=== PATIENT | female | born 1955 | race Hispanic/Latino ===

== ENCOUNTER 2017-01-13 22:49 | Inpatient (IN) | payer MEDICARE, OTHER ==
--- NOTE | 2017-01-13 23:24 | ED PDOC ---
Arrival/HPI - General Time Seen by Provider: 01/13/17 22:55 Historian: Patient - History of Present Illness Narrative History of Present Illness (Text): 01/13/17 23:23 Shanelle Rodriguez is a 61 year old female, whose past medical history includes whose past medical history includes breast cancer, diabetes, cholecystectomy, lupus, and left-sided nephrolithiasis, who presents to the ED complaining of right flank pain. Patient states she woke up this morning with right flank pain radiating to her abdomen, gradually worsening throughout the day. Patient also reports associated nausea and vomiting. Patient states she took Zofran at home, but was unable to keep it down secondary to vomiting. Patient denies any fever, chills, chest pain, shortness of breath, diarrhea, urinary symptoms, neck pain, headache, dizziness, or any other complaints. Time/Duration: Other (this morning) Symptom Onset: Gradual Symptom Course: Unchanged Activities at Onset: Rest, Light Context: Home Past Medical History - Provider Review Nursing Documentation Reviewed: Yes - Cardiac Hx Cardiac Arrhythmia: Yes (afib/flutter, svt) Hx Hypertension: Yes - Pulmonary Hx Respiratory Disorders: (pulmonary fibrosis) Hx Chronic Obstructive Pulmonary Disease (COPD): Yes Hx Pneumonia: Yes - Neurological Hx Neurological Disorder: (peripheral neuropathy) - HEENT Hx HEENT Disorder: (glasses) - Endocrine/Metabolic Hx Diabetes Mellitus Type 2: Yes Hx Systemic Lupus Erythematosus: Yes - Hematological/Oncological Hx Cancer: Yes (breast, lyph node x1) - Musculoskeletal/Rheumatological Hx Arthritis: Yes (rheumatoid) Hx Falls: No Hx Unsteady Gait: Yes (cane) - Psychiatric Hx Substance Use: No - Surgical History Hx Cholecystectomy: Yes Hx Hysterectomy: Yes - Anesthesia Hx Malignant Hyperthermia: No Family/Social History - Physician Review Nursing Documentation Reviewed: Yes Family/Social History: No Known Family HX Smoking Status: Never Smoked Hx Alcohol Use: No Hx Substance Use: No Hx Substance Use Treatment: No Allergies/Home Meds Allergies/Adverse Reactions: Allergies erythromycin base Allergy (Verified 01/13/17 23:41) RASH gabapentin Allergy (Verified 01/13/17 23:41) RASH prochlorperazine Allergy (Verified 01/13/17 23:41) RASH quinine Allergy (Verified 01/13/17 23:41) RASH Home Medications: Home Meds Medication Instructions Recorded Confirmed Acetaminophen/Oxycodone Hydr 15 tab PO PRN PRN 05/30/12 01/14/17 [Percocet 325 mg-5 mg] Digoxin 0.25 mg PO DAILY 05/30/12 01/14/17 Flecainide Acetate 200 mg PO Q12 05/30/12 01/14/17 Fluticasone Propionate [Flovent 20 mg IH Q12 05/30/12 01/14/17 Diskus] Furosemide [Lasix] 40 mg PO DAILY 05/30/12 01/14/17 Levalbuterol Tartrate [Xopenex Hfa] 45 mcg IH Q6 05/30/12 01/14/17 Oxycodone Hydrochloride [Oxycontin] 20 mg PO Q12 PRN 05/30/12 01/14/17 Potassium Chloride [K-Dur 20] 40 meq PO DAILY 05/30/12 01/14/17 Prednisone 5 mg PO DAILY 05/30/12 01/14/17 Metoprolol Succinate [Toprol XL] 50 mg PO DAILY 10/22/13 01/14/17 Ondansetron ODT [Zofran ODT] 4 mg PO PRN PRN 10/22/13 01/14/17 DULoxetine [Cymbalta] 40 mg PO DAILY 01/14/17 01/14/17 Dronabinol [Marinol] 5 mg PO DAILY 01/14/17 01/14/17 Fluticasone Propionate [Flovent 1 puff PO BID 01/14/17 01/14/17 Hfa] Glipizide/Metformin HCl 500 tab PO BID 01/14/17 01/14/17 [Glipizide-Metformin 2.5-250 mg] Morphine [Morphine Extended 80 mg PO DAILY 01/14/17 01/14/17 Release Tab] Palbociclib [Ibrance] 125 mg PO DAILY 01/14/17 01/14/17 Review of Systems - Physician Review All systems were reviewed & negative as marked: Yes - Review of Systems Constitutional: Normal. absent: Fevers Eyes: Normal ENT: Normal Respiratory: Normal. absent: SOB, Cough Cardiovascular: Normal. absent: Chest Pain Gastrointestinal: Abdominal Pain, Nausea, Vomiting Genitourinary Female: Normal. absent: Dysuria, Frequency, Hematuria, Urine Output Changes Musculoskeletal: Back Pain (+right flank pain). absent: Neck Pain Skin: Normal. absent: Rash Neurological: Normal. absent: Headache, Dizziness Endocrine: Normal Hemo/Lymphatic: Normal Psychiatric: Normal Physical Exam Vital Signs Reviewed: Yes Vital Signs Temp Pulse Resp BP Pulse Ox 01/14/17 03:25 977.6 F H 65 18 156/64 H 95 01/14/17 01:00 69 16 151/69 H 95 01/13/17 22:50 97.6 F 68 16 157/73 H 98 Temperature: Afebrile Blood Pressure: Normal Pulse: Regular Respiratory Rate: Normal Appearance: Positive for: Well-Appearing, Non-Toxic, Comfortable Pain Distress: None Mental Status: Positive for: Alert and Oriented X 3 - Systems Exam Head: Present: Atraumatic, Normocephalic Pupils: Present: PERRL Extroacular Muscles: Present: EOMI Conjunctiva: Present: Normal Mouth: Present: Moist Mucous Membranes Neck: Present: Normal Range of Motion Respiratory/Chest: Present: Clear to Auscultation, Good Air Exchange. No: Respiratory Distress, Accessory Muscle Use Cardiovascular: Present: Regular Rate and Rhythm, Normal S1, S2. No: Murmurs Abdomen: Present: Normal Bowel Sounds. No: Tenderness, Distention, Peritoneal Signs Back: Present: Normal Inspection Upper Extremity: Present: Normal Inspection. No: Cyanosis, Edema Lower Extremity: Present: Normal Inspection. No: Edema Neurological: Present: GCS=15, CN II-XII Intact, Speech Normal Skin: Present: Warm, Dry, Normal Color. No: Rashes Psychiatric: Present: Alert, Oriented x 3, Normal Insight, Normal Concentration Medical Decision Making ED Course and Treatment: 01/13/17 23:23 Impression: 61 year old female complaining of right flank pain radiating to abdomen since this morning. Plan: -- CT Abdomen and Pelvis with PO and IV contrast -- Labs -- Urinalysis -- IV fluids -- Zofran -- Dilaudid -- Reassess and disposition Prior Visits: Notes and results from previous visits were reviewed. Progress Notes: Reviewed EKG, NSR at 67 bpm. LAD. RBBB. LVH. Non-specific ST/T wave changes. 01/14/17 02:25 Reviewed labs, elevated LFTs. Reviewed radiology, CT Abdomen and Pelvis shows: - Small amount of perihepatic free fluid. This is of uncertain etiology. - Biliary ductal dilatation, which may be related to the post cholecystectomy state. Recommend correlation with LFTs as clinically indicated. - Otherwise, no evidence of significant acute process on this unenhanced exam. Appendix is not seen, however. - Enlarged liver and spleen, with possible cirrhotic change of the liver. - See above for remaining findings. 01/14/17 03:[address] Spaulding, who is aware and agrees with plan. Accepts pt in to her service. - Lab Interpretations Lab Results: 01/15/17 05:50 01/15/17 05:50 Lab Results 01/15/17 05:50: WBC 4.2 L D, RBC 3.50, Hgb 11.5 L, Hct 34.9 L, MCV 99.7, MCH 32.9, MCHC 33.0, RDW 15.3 H, Plt Count 173, MPV 10.0, Gran % 60.3, Lymph % (Auto ) 30.4, [place] % (Auto) 6.9 H, Eos % (Auto) 1.7, Baso % (Auto) 0.7, Gran # 2.54, Lymph # 1.3, [place] # 0.3, Eos # 0.1, Baso # 0.03, Sodium 136, Potassium 3.9, Chloride 98, Carbon Dioxide 30, Anion Gap 12, BUN 12, Creatinine 0.4 L, Est GFR ( Amer) > 60, Est GFR (Non-Af Amer) > 60, Random Glucose 259 H, Calcium 8.7, Total Bilirubin 1.0, AST 118 H, ALT 88 H, Alkaline Phosphatase 122, Total Protein 8.0, Albumin 3.5, Globulin 4.5, Albumin/Globulin Ratio 0.8 L, Alpha Fetoprotein 3.0 01/14/17 00:20: WBC 6.0, RBC 3.76, Hgb 12.5, Hct 37.0, MCV 98.4, MCH 33.2, MCHC 33.8, RDW 15.0 H, Plt Count 192, MPV 10.1, Gran % 76.5 H, Lymph % (Auto) 16.7 L , [place] % (Auto) 5.6, Eos % (Auto) 0.7 L, Baso % (Auto) 0.5, Gran # 4.62, Lymph # 1.0 L, [place] # 0.3, Eos # 0.0, Baso # 0.03, Sodium 134, Potassium 4.2, Chloride 93 L, Carbon Dioxide 29, Anion Gap 16, BUN 19, Creatinine 0.5, Est GFR ( Amer) > 60, Est GFR (Non-Af Amer) > 60, Random Glucose 201 H, Calcium 9.2, Total Bilirubin 1.3, AST 155 H, ALT 101 H, Alkaline Phosphatase 144 H, Total Protein 9.0 H, Albumin 4.1, Globulin 4.9, Albumin/Globulin Ratio 0.8 L 01/14/17 00:01: Hepatitis A IgM Ab Negative, Hep Bs Antigen Negative, Hep B Core IgM Ab Negative, Hepatitis C Antibody Reactive H 01/13/17 23:58: POC Glucose (mg/dL) 204 H 01/13/17 05:30: Urine Color Yellow, Urine Appearance Slight-cloudy, Urine pH 6.0 , Ur Specific [place] >= 1.030, Urine Protein Trace H, Urine Glucose (UA) 100 H , Urine Ketones Negative, Urine Blood Negative, Urine Nitrate Negative, Urine Bilirubin Negative, Urine Urobilinogen 4.0 H, Ur Leukocyte Esterase Trace H, Urine RBC 0 - 2, Urine WBC 1 - 3, Ur Epithelial Cells 0 - 2, Urine Bacteria Many I have reviewed the lab results: Yes - RAD Interpretation Narrative RAD Interpretations (Text): CT Abdomen and Pelvis shows: STOMACH AND BOWEL: Ventral hernia, in the midline anterior abdominal wall, containing a small bowel loop. No evidence of associated bowel obstruction or hernia incarceration. Retained stool noted throughout the colon. No acute abnormality of the colon identified. No evidence of small bowel obstruction. No acute abnormality of the stomach or duodenum identified. APPENDIX: Normal appendix is not seen, however, there are no significant inflammatory changes visualized in the expected location of the appendix to suggest appendicitis. Recommend clinical correlation. PELVIS: BLADDER: No acute abnormality of the bladder identified. REPRODUCTIVE: Uterus is surgically absent. No evidence of large adnexal masses. ABDOMEN and PELVIS: INTRAPERITONEAL SPACE: Small amount of free fluid in the right abdomen. This abuts the right lobe of the liver inferiorly. No evidence of free air. BONES/JOINTS: No acute fractures or other acute bony abnormality noted. SOFT TISSUES: Findings in the gluteal subcutaneous tissues bilaterally which are most likely related to chronic subcutaneous injections. Recommend clinical correlation. Fat containing ventral and umbilical hernias also noted. VASCULATURE: Atherosclerotic calcification. No evidence of abdominal aortic aneurysm. LYMPH NODES: No evidence of diffuse lymphadenopathy. IMPRESSION: - Small amount of perihepatic free fluid. This is of uncertain etiology. - Biliary ductal dilatation, which may be related to the post cholecystectomy state. Recommend correlation with LFTs as clinically indicated. - Otherwise, no evidence of significant acute process on this unenhanced exam. Appendix is not seen, however. - Enlarged liver and spleen, with possible cirrhotic change of the liver. - See above for remaining findings. Radiology Orders: 01/13/17 23:44 ABD & PELVIS W/O PO OR IV CONT [CT] Stat 01/14/17 06:58 ABDOMEN COMPLETE [US] Urgent 01/15/17 13:30 MRCP AND ABDOMEN W/O CONTRAST [MRI] Routine Grounds Maintenance Worker: Radiologist - Medication Orders Current Medication Orders: Discontinued Medications Alprazolam (Xanax) 0.5 mg PO ONCE ONE PRN Reason: Protocol Stop: 01/15/17 13:01 Last Admin: 01/15/17 12:34 Dose: 0.5 MG Behavioural Document 01/15/17 12:34 MANJINDER (Rec: 01/15/17 12:34 [place]ER [place] [id number]) Maintenance Maintenance Dose No Nonmedicinal Nonmedicinal Interventions Redirect Therapeutic Communication Give food/fluids Behavior Behavior for Medication: Anxiety Amlodipine Besylate (Norvasc) 5 mg PO DAILY [facility] Last Admin: 01/16/17 10:13 Dose: 5 MG MAR Pulse and Blood Pressure Document 01/16/17 10:13 DLL (Rec: 01/16/17 10:14 DLL [id number]) Pulse Pulse Rate (60-90) 67 Blood Pressure Blood Pressure (100/60-150/90) 191/87 Budesonide (Pulmicort Respules) 0.5 mg IH [id number] [facility] Last Admin: 01/16/17 09:01 Dose: 0.5 MG Digoxin (Lanoxin) 0.25 mg PO 1400 [facility] Last Admin: 01/15/17 17:55 Dose: 0.25 MG MAR Apical Pulse Rate Document 01/15/17 17:55 MANJINDER (Rec: 01/15/17 17:56 [place] [id number]) Apical Pulse Rate Apical Pulse Rate (60-90 beats/min) 62 Duloxetine HCl (Cymbalta) 40 mg PO DAILY [facility] Last Admin: 01/14/17 20:17 Dose: Duloxetine HCl (Cymbalta) 40 mg PO HS JOAQUIN Stop: 01/28/17 10:01 Last Admin: 01/15/17 21:48 Dose: 40 MG Flecainide Acetate (Tambocor) 200 mg PO Q12 [facility] Last Admin: 01/16/17 10:14 Dose: 200 MG MAR Pulse and Blood Pressure Document 01/16/17 10:14 DLL (Rec: 01/16/17 10:15 DLL [id number]) Pulse Pulse Rate (60-90) 67 Blood Pressure Blood Pressure (100/60-150/90) 191/87 Furosemide (Lasix) 40 mg PO DAILY [facility] Last Admin: 01/16/17 10:14 Dose: 40 MG MAR Blood Pressure Document 01/16/17 10:14 DLL (Rec: 01/16/17 10:14 DLL [id number]) Blood Pressure Blood Pressure (100/60-150/90) 191/87 Glipizide (Glucotrol) 2.5 mg PO BID [facility] Last Admin: 01/16/17 10:13 Dose: 2.5 MG Hydromorphone HCl (Dilaudid) 2 mg IVP STAT STA Stop: 01/13/17 23:45 Last Admin: 01/14/17 00:20 Dose: 2 MG IVP Administration Document 01/14/17 00:20 OCS (Rec: 01/14/17 00:21 OCS [id number]) Charges for Administration # of IVP Administrations 1 Hydromorphone HCl (Dilaudid) 2 mg IVP STAT STA Stop: 01/14/17 02:23 Last Admin: 01/14/17 02:38 Dose: 2 MG IVP Administration Document 01/14/17 02:38 OCS (Rec: 01/14/17 02:38 OCS [id number]) Charges for Administration # of IVP Administrations 1 Hydromorphone HCl (Dilaudid) 2 mg IVP Q4H PRN PRN Reason: Pain, moderate (4-7) Last Admin: 01/16/17 05:15 Dose: 2 MG MAR Pain Assessment Document 01/16/17 05:15 PCO (Rec: 01/16/17 05:16 [place] [id number]) Pain Reassessment Is this a pain reassessment? No Sleep Is patient sleeping during reassessment? No Presence of Pain Presence of Pain Yes Pain Scale Used Pain Scale Used Numeric Location Left, Right or Bilateral Left Pain Location Body Site Breast Description Description Intermittent Intensity of Pain at present 8 Acceptable Level of Pain 0/10 Variations/Patterns sharp Pain Behavior Moaning Facial Grimacing Aggravating Factors Exercise/Activity Alleviating Factors/Management Medication Techniques Relaxation Techniques Inactivity Alleviating Factors Medication Effects of Pain pain woke me up IVP Administration Document 01/16/17 05:15 PC (Rec: 01/16/17 05:16 [place] [id number]) Charges for Administration # of IVP Administrations 1 Re-Assess: MAR Pain Assessment Document 01/16/17 06:15 PCO (Rec: 01/16/17 07:00 [place] [id number]) Pain Reassessment Is this a pain reassessment? Yes Sleep Is patient sleeping during reassessment? No Presence of Pain Presence of Pain No Sodium Chloride (Sodium Chloride 0.9%) 1,000 mls @ 100 mls/hr IV .Q10H STA Stop: 01/14/17 09:42 Last Admin: 01/14/17 00:20 Dose: 100 MLS/HR eMAR Start Stop Document 01/14/17 00:20 OCS (Rec: 01/14/17 00:20 OCS [id number]) Intravenous Solution Start Date 01/14/17 Start Time 00:20 Sodium Chloride (Sodium Chloride 0.45%) 1,000 mls @ 50 mls/hr IV .Q20H [facility] Last Admin: 01/16/17 08:22 Dose: 50 MLS/HR eMAR Start Stop Document 01/16/17 08:22 DLL (Rec: 01/16/17 08:22 DLL [id number]) Intravenous Solution Start Date 01/16/17 Start Time 08:22 End Date 01/16/17 Insulin Human Lispro (Humalog Low) 0 units SC ACHS [facility] PRN Reason: Protocol Last Admin: 01/16/17 11:34 Dose: 5 UNITS MAR Blood Glucose Document 01/16/17 11:34 DLL (Rec: 01/16/17 11:35 DLL [id number]) Blood Glucose Finger Stick Blood Glucose (70-120) 368 Subcutaneous Administrations Document 01/16/17 11:34 DLL (Rec: 01/16/17 11:35 DLL [id number]) Injection Site MAR Injection Site Right Arm Charges for Administration # of Subcutaneous Administrations 1 Levalbuterol HCl (Xopenex) 0.63 mg IH [id number] PRN PRN Reason: Shortness of Breath Last Admin: 01/15/17 19:57 Dose: 0.63 MG Metformin HCl (Glucophage) 500 mg PO BID [facility] Last Admin: 01/16/17 10:13 Dose: 500 MG Metoprolol Succinate (Toprol Xl) 50 mg PO DAILY [facility] Last Admin: 01/16/17 10:14 Dose: 50 MG MAR Pulse and Blood Pressure Document 01/16/17 10:14 DLL (Rec: 01/16/17 10:14 DLL [id number]) Pulse Pulse Rate (60-90) 67 Blood Pressure Blood Pressure (100/60-150/90) 191/87 Mirtazapine (Remeron) 30 mg PO HS [facility] Last Admin: 01/15/17 21:45 Dose: 30 MG Palbociclib [Ibrance ] 125 Mg (Home Med ) 125 mg PO DAILY [facility] Last Admin: 01/15/17 10:47 Dose: Ondansetron HCl (Zofran Inj) 4 mg IVP STAT STA Stop: 01/13/17 23:44 Last Admin: 01/14/17 00:20 Dose: 4 MG IVP Administration Document 01/14/17 00:20 OCS (Rec: 01/14/17 00:20 OCS [id number]) Charges for Administration # of IVP Administrations 1 Ondansetron HCl (Zofran Odt) 4 mg PO Q8H PRN PRN Reason: Nausea/Vomiting Last Admin: 01/15/17 11:01 Dose: 4 MG Oxycodone HCl (Oxycontin Extended Release Tab) 20 mg PO Q12 [facility] Last Admin: 01/16/17 10:14 Dose: 20 MG MAR Pain Assessment Document 01/16/17 10:14 DLL (Rec: 01/16/17 10:14 DLL [id number]) Pain Reassessment Is this a pain reassessment? No Sleep Is patient sleeping during reassessment? No Presence of Pain Presence of Pain Yes Pantoprazole Sodium (Protonix Ec Tab) 40 mg PO 0630 [facility] Last Admin: 01/16/17 06:10 Dose: 40 MG Potassium Chloride (K-Dur 20 Meq Er Tab) 20 meq PO DAILY [facility] Last Admin: 01/16/17 10:14 Dose: 20 MEQ Prednisone (Prednisone Tab) 5 mg PO DAILY [facility] Last Admin: 01/16/17 10:13 Dose: 5 MG - Lazaroibe Statement The provider has reviewed the documentation as recorded by the Melanie Dudley Provider Attestation: All medical record entries made by the Melanie were at my direction and personally dictated by me. I have reviewed the chart and agree that the record accurately reflects my personal performance of the history, physical exam, medical decision making, and the department course for this patient. I have also personally directed, reviewed, and agree with the discharge instructions and disposition. Disposition/Present on Arrival - Present on Arrival Any Indicators Present on Arrival: No History of DVT/PE: No History of Uncontrolled Diabetes: No Urinary Catheter: No History Surgical Site Infection Following: None - Disposition Have Diagnosis and Disposition been Completed?: Yes Diagnosis: Flank pain Disposition: HOSPITALIZED Disposition Time: 04:00 Patient Problems: Current Active Problems Problem Status Diagnosed Breast cancer Acute Diabetes mellitus Acute Condition: GOOD
[2017-01-13 23:36] VITALS: BMI 27.3
[2017-01-13] MEDS ORDERED: Sodium Chloride 0.9% 1,000 ML IV STA (23:43)
[2017-01-13] MEDS ORDERED: HYDROmorphone 2 mg/ml ISec IVP STA (23:44)
[2017-01-14 00:24] LABS: ADD MANUAL DIFF? NO
[2017-01-14 00:46] LABS: ALB/GLOB RATIO 0.8 (1.1-1.8); ALKALINE PHOSPHATASE 144 U/L (38-133); ALT/SGPT 101 U/L (7-56); AST/SGOT 155 U/L (15-39); BILIRUBIN,TOTAL 1.3 mg/dL (0.2-1.3); BLOOD UREA NITROGEN 19 mg/dL (7-21); CALCIUM 9.2 mg/dL (8.4-10.5); CARBON DIOXIDE 29 mmol/L (21-33); CHLORIDE 93 mmol/L (98-107); GFR AFRICAN-AMERICAN > 60; GLUCOSE,RANDOM 201 mg/dL (70-110); POTASSIUM 4.2 mmol/L (3.6-5.0); SODIUM 134 mmol/L (132-148)
[2017-01-14 00:50] LABS: BASO # 0.03 K/mm3 (0.0-2.0); BASO % 0.5 % (0.0-3.0); EOS % 0.7 % (1.5-5.0); GRAN # 4.62 (1.4-6.5); GRAN % 76.5 % (50.0-68.0); LYMPH % 16.7 % (22.0-35.0); MEAN CELL VOLUME 98.4 fL (80.0-105.0); MEAN CORPUSCULAR HEMOGLOBIN 33.2 pg (25.0-35.0); MEAN CORPUSCULAR HGB CONC 33.8 g/dl (31.0-37.0); MEAN PLATELET VOLUME 10.1 fl (7.0-11.0); MONO # 0.3 (0.1-0.6); MONO % 5.6 % (1.0-6.0); PLATELET COUNT 192 10^3/uL (120.0-450.0)
[2017-01-14] MEDS ORDERED: HYDROmorphone 2 mg/ml ISec IVP STA (02:22)
--- NOTE | 2017-01-14 02:30 | CT ---
EXAM: CT Abdomen and Pelvis Without Intravenous Contrast. CLINICAL HISTORY: 61 years old, female; Pain; Abdominal pain; Flank; Right; Prior surgery; Surgery date: 6+ months; Surgery type: Hysterectomy, gallbladder removal; Additional info: Rt flank pain TECHNIQUE: Axial computed tomography images of the abdomen and pelvis without intravenous contrast. This CT exam was performed using one or more of the following dose reduction techniques: automated exposure control, adjustment of the mA and/or kV according to patient size, and/or use of iterative reconstruction technique. Coronal and sagittal reformatted images were created and reviewed. EXAM DATE/TIME: 01/13/2017 11:44 PM COMPARISON: No relevant prior studies available. FINDINGS: LOWER THORAX: Heart appears enlarged. ABDOMEN: LIVER: Hepatomegaly, with the liver measuring 23 cm in length. The liver has a mildly lobulated contour, which could be secondary to cirrhotic change. GALLBLADDER AND BILE DUCTS: Cholecystectomy clips. Biliary ductal dilatation, which may be related to the post cholecystectomy state. No radiopaque common bile duct stones are visualized. PANCREAS: No CT evidence of acute pancreatitis. SPLEEN: Splenomegaly, with the spleen measuring 19 cm in length. ADRENALS: No acute abnormality of the adrenal glands identified. KIDNEYS AND URETERS: Tiny, nonobstructing left renal stones. Low density lesions in the kidneys bilaterally, most likely representing cysts. No obstructing stones are seen. No evidence of hydroureteronephrosis. STOMACH AND BOWEL: Ventral hernia, in the midline anterior abdominal wall, containing a small bowel loop. No evidence of associated bowel obstruction or hernia incarceration. Retained stool noted throughout the colon. No acute abnormality of the colon identified. No evidence of small bowel obstruction. No acute abnormality of the stomach or duodenum identified. APPENDIX: Normal appendix is not seen, however, there are no significant inflammatory changes visualized in the expected location of the appendix to suggest appendicitis. Recommend clinical correlation. PELVIS: BLADDER: No acute abnormality of the bladder identified. REPRODUCTIVE: Uterus is surgically absent. No evidence of large adnexal masses. ABDOMEN and PELVIS: INTRAPERITONEAL SPACE: Small amount of free fluid in the right abdomen. This abuts the right lobe of the liver inferiorly. No evidence of free air. BONES/JOINTS: No acute fractures or other acute bony abnormality noted. SOFT TISSUES: Findings in the gluteal subcutaneous tissues bilaterally which are most likely related to chronic subcutaneous injections. Recommend clinical correlation. Fat containing ventral and umbilical hernias also noted. VASCULATURE: Atherosclerotic calcification. No evidence of abdominal aortic aneurysm. LYMPH NODES: No evidence of diffuse lymphadenopathy. IMPRESSION: - Small amount of perihepatic free fluid. This is of uncertain etiology. - Biliary ductal dilatation, which may be related to the post cholecystectomy state. Recommend correlation with LFTs as clinically indicated. - Otherwise, no evidence of significant acute process on this unenhanced exam. Appendix is not seen, however. - Enlarged liver and spleen, with possible cirrhotic change of the liver. - See above for remaining findings.
[2017-01-14] MEDS ORDERED: Sodium Chloride 0.9% 1,000 ML IV STA (03:10)
[2017-01-14 05:35] VITALS: RESP 20
[2017-01-14 05:59] LABS: URINE BILIRUBIN NEGATIVE (NEGATIVE); URINE BLOOD NEGATIVE (NEGATIVE); URINE GLUCOSE (UA) 100 mg/dL (NEGATIVE); URINE KETONE NEGATIVE (NEGATIVE); URINE LEUKOCYTE ESTERASE TRACE Leu/uL (NEGATIVE); URINE PROTEIN TRACE mg/dL (<30 mg/dL)
[2017-01-14 06:00] LABS: URINE APPEARANCE SLIGHT-CLOUDY (CLEAR); URINE COLOR YELLOW (YELLOW)
[2017-01-14] MEDS: HYDROmorphone 2 mg/ml ISec IVP PRN ×4 (06:00→22:19)
[2017-01-14 06:13] LABS: URINE BACTERIA MANY (NEG); URINE EPITHELIAL CELLS 0 - 2 /hpf (0-5); URINE RBC 0 - 2 /hpf (0-2)
[2017-01-14] MEDS: Insulin Lispro (humaLOG) LOW Coverage SC SCH ×4 (08:46→22:30)
[2017-01-14] MEDS: Potassium Chloride 20 mEq ER Tab PO SCH (12:05)
[2017-01-14] MEDS: Metoprolol Succinate 50 mg XL Tab PO SCH (12:06)
--- NOTE | 2017-01-14 13:40 | US ---
HISTORY: abd pain COMPARISON: 10/22/2013. TECHNIQUE: Sonographic evaluation of the abdomen. FINDINGS: LIVER: Measures 22.9 x 12.5 cm. Hepatomegaly. Hepatopedal blood flow. Fatty infiltration manifest ultrasonographically as increased Echogenicity of the liver parenchyma. No mass. No intrahepatic bile duct dilatation. GALLBLADDER: Status post cholecystectomy. No abnormality is seen in the gallbladder fossa. COMMON BILE DUCT: Measures 15.1 mm. No stones. No dilatation. Dilated common bile duct apparent on the prior study as well. PANCREAS: Unremarkable as visualized. No mass. No ductal dilatation. RIGHT KIDNEY: Measures 12.6 x 5.4cm. Normal echogenicity. No calculus, mass, or hydronephrosis.Incidental finding(s): Simple cyst 5.1 x 4.5 cm. Upper pole location. LEFT KIDNEY: Measures 12.9 x 5.4cm. Normal echogenicity. No calculus, mass, or hydronephrosis.Incidental finding(s): Simple cyst 1.8 x 2.3 cm. SPLEEN: Splenomegaly. Orthogonal measurements 6.2 x 19.8. AORTA: No aneurysmal dilatation. IVC: Unremarkable. OTHER FINDINGS: None. IMPRESSION: Splenomegaly. Hepatomegaly/hepatic steatosis. Otherwise no significant/acute findings.
--- NOTE | 2017-01-14 13:43 | HP ---
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 The patient came to Emergency Room because of severe right flank pain radiating to her right mid to lower abdomen. She did notice her urine has fo ul smell and did have some low-grade fever and chills with decreased appetite. She takes Marinol at home for her appetite. Denies any hematuria, no hemoptysis, no hematemesis, decreased appetite and n ausea at times. She has complicated past medical history includin. Chronic atrial fibrillation. 2. Non-insulin dependent diabetes. 3. Status post left thoracotomy for sympathectomy that she got in [employer] when she was havin g severe pain because of Raynaud's phenomenon. 4. Status post thoracic and lumbar sympathectomy 5. History of endometriosis. 6. Chronic anemia. 7. Gastroparesis. 8. Hepatitis C that she with a blood transfusion that she received 20 years ago. 9. Pulmonary fibrosis. 10. Left breast CA with mets to the lymph nodes. 11. Osteoporosis. 12. Mitral regurg. 13. Peripheral neuropathy. PAST SURGICAL HISTORY: Significant for hysterectomy and cholecystectomy. ALLERGIES: SHE IS ALLERGIC TO ERYTHROMYCIN, GABAPENTIN, PROCHLORPERAZINE, QUININE. MEDICATIONS AT HOME: 1. She is on Cymbalta 40 mg daily. 2. Dilaudid 2 mg. 3. Metformin 2.5/250 twice a day. 4. She is on MS Contin 80 mg daily. 5. Ibrance 125 mg daily. 6. Marinol 5 mg daily. 7. Flovent 1 puff twice a day. 9. Prednisone 5 mg daily. 10. Potassium 40 mEq daily. 11. OxyContin 20 mg q. 12. 12. Zofran. 13. Xopenex. 14. Percocet 1 tablet q. 6 hours. 15. Metoprolol 50 mg daily. 16. Digoxin 0.25 daily. 17. Lasix 40 mg daily. 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 REVIEW OF SYSTEMS: Generalized weakness, complained of right flank pain. Complained of decreased ap petite. PHYSICAL EXAMINATION: GENERAL: She is awake and alert, communicative. VITAL SIGNS: She is afebrile, pulse 76, respirations 20, blood pressure 143/62. LUNGS: Bilateral fair airflow, no rhonchi or crackle. HEART: S1, S2 audible. ABDOMEN: Soft, obese, nontender, no rebound, no guarding. NEUROLOGIC: The patient is awake and alert, able to communicate. EXTREMITIES: Bilateral legs +1 edema. LABORATORY EXAMINATION: WBC 6.0, hemoglobin 12.5, hematocrit 37, platelets 192. Chemistry: Sodium 134, potassium 4.2, chloride 93, CO2 of 29, BUN 19, creatinine 0.5, blood sugar of 201, AST 155, ALT 101, alk phos 144. Urine shows trace leukocyte and white count is 1-3 in urine. Hepatitis profile A and B are negative. Hep C is pending, although she is known case of hepatitis C. Abdominal sonogr am is pending. She had a CT scan of the abdomen and pelvis done that shows small amount of perihepat ic free fluid, biliary ductal dilatation related to post-cholecystectomy. She has enlarged liver and spleen with cirrhotic changes. ASSESSMENT: 1. Right flank pain. Differential is nephrolithiasis versus urinary tract infection versus hepatic pathology. The patient has elevated LFTs. She has a history of hepatitis C, probably will benefit f rom MRCP. 2. History of lupus. 3. Hypertension. 4. Osd-pphhnyk-zxcyjfueb diabetes. 5. Bilateral cancer of breasts. PLAN: We will monitor blood sugar. We will discuss with Dr. Romero and if he agrees, we might hav e to do an MRCP. For now, will keep her on clear liquid diet, give her IV fluid and Zofran as needed . Adam Spaulding MD cc: [id number] TT: 01/14/2017 13:43:16 tn
[2017-01-14] MEDS: Digoxin 250 mcg (0.25 mg) Tab PO SCH (15:10)
[2017-01-14] MEDS: oxyCODONE 20 mg ER Tab (oxyCONTIN) PO SCH ×2 (15:12→23:11)
[2017-01-14] MEDS: PALBOCICLIB 125 MG PO SCH (15:13)
[2017-01-14] MEDS: Levalbuterol 0.63 MG/3 ML Inhal Soln UD IH PRN ×2 (15:56→20:52)
[2017-01-14] MEDS: Sodium Chloride 0.45% 1,000 ML IV SCH (16:46)
--- NOTE | 2017-01-14 18:31 | CARD ---
APPROVED REPORT EKG Measurement Heart [id number] NM [id number] <Conclusion> Normal sinus rhythm Left axis deviation Right bundle branch block Left ventricular hypertrophy with repolarization abnormality Abnormal ECG
--- NOTE | 2017-01-14 20:08 | CON ---
DATE: 01/14/2017 REQUEST FOR CONSULT: Flank pain. HISTORY OF PRESENT ILLNESS: This is a 61-year-old female with NG multiple medical problems. She has history of left breast CA with mets to the lymph nodes currently receiving treatment, stage IV, cur rently receiving chemotherapy alone tethering in [place] chronic anemia is hepatitis C, hepatitis B, came to the Emergency Room with complaints of severe right flank pain radiating to medication to low er abdomen. She also complained of chills and decreased appetite. The patient is on Marinol home fo r her appetite. Denies any dysphagia. She states that the flank pain was in a sudden onset that occ urred in the morning when she woke up, she did complain of nausea and vomiting, no hematemesis. She does get symptoms of reflux and takes Nexium. She also reported that she noticed a foul smell is fro m her urine try to increase her oral intake, but denies any dysuria or hematuria. Also, she had a PE T scan done, I believe in about a month ago and she was told that she has no hepatosplenomegaly On ad mission, she had a CT scan of abdomen and pelvis without any contrast and that reporting some biliary ductal dilatation. She does have a history of cholecystectomy as well as enlarged liver and spleen with possible cirrhotic changes in the liver and retained stool throughout the colon as well as ventr al hernia did not show any evidence of diffuse lymphadenopathy. The patient was also noted to have e levated liver enzymes. No reports of any diarrhea or constipation, denies any melena or bright red b lood per rectum. She did have endoscopy about more than 5 years ago. Coffee ground vomited. She sa ys she had an endoscopy about more than 5 years. PAST MEDICAL HISTORY: Significant for stage IV left breast cancer with mets to the lymph nodes, hepa tic organomegaly, chronic hepatitis B, pulmonary fibrosis, peripheral neuropathy, chronic atrial fibr illation, noninsulin dependent diabetes, lupus, GERD, morbid obesity, chronic anemia, gastroparesis, osteoporosis, ventral hernia. PAST SURGICAL HISTORY: Cholecystectomy and hysterectomy. She also had any thoracic or lumbar sympat hectomy. FAMILY HISTORY: Her mother had ovarian cancer, hypertension, temporal arteritis. ALLERGIES: ERYTHROMYCIN, GABAPENTIN, PROCHLORPERAZINE AND QUININE. MEDICATIONS: Reviewed as per MAR. SOCIAL HISTORY: Denies ETOH, smoking or substance abuse. She is a retired nurse. REVIEW OF SYSTEMS: Systems were reviewed with positive findings, see HPI. LABORATORY DATA: Sodium is 134, K is 4.2, BUN is 19, creatinine is 0.5, total bilirubin is 1.3, AST 155, ALT 101, alkaline phosphatase is 144. WBC is 6.20, H and H is 12.5 and 37.0, platelets of 192. Hep panel is negative. The hepatitis C antibody is pending. CT scan of abdomen and pelvis report was reviewed. An abdominal ultrasound was also done today and that showed hepatomegaly, no mass and there were no intrahepatic bile duct dilatation. Gallbladder is status post cholecystectomy, a bnormalities. The common bile duct measures 15.1 mm, no stones or dilatation, dilated common bile du ct apparent on prior study as well, splenomegaly, no aneurysm dilatation, simple cyst in the right ki dney as well as the left kidney, no hydronephrosis, mass or calculus. PHYSICAL EXAMINATION: VITAL SIGNS: Temperature is 97.8, blood pressure is 146/62, pulse rate 63, respirations 20. HEENT: Sclerae is anicteric. NECK: Supple. CARDIAC: S1, S2. LUNGS: Are clear, no rales or wheeze. ABDOMEN: With bowel sounds. It is soft. There is positive tenderness to epigastric right upper amy drant area, palpable hernia and also positive for splenomegaly and hepatomegaly, no CVA tenderness no luciana. EXTREMITIES: Lower extremities positive for bilateral edema. NEUROLOGIC: Awake, alert, and oriented. ASSESSMENT: This patient with abdominal pain, actually, the right flank. She has also a ventral her nir with no hepatosplenomegaly, noted to have elevated liver function tests. She has a history of a cholecystectomy. She did have an ultrasound done and the common bile duct measures 15 mm, but they d id not report any common bile duct stones. She also has a history of hepatitis C and she is currentl y being treated for stage IV breast cancer with metastases to her lymph nodes. She has a ventral her nir, history of noninsulin dependent diabetes, hypertension and a history of lupus. PLAN: We will request for alpha fetoprotein and also hepatitis C viral RNA and discussed with the joel cook regarding going for an MRCP and MRI without contrast; the patient is agreeable. She should con tinue on the liquid diet for now. Currently on oxycodone for pain and Zofran p.r.n. nausea. She is on Protonix 40 and is also on prednisone and IV fluids. She may benefit from an upper endoscopy at o ne point, but we will evaluate MRCP and make further recommendations. Thank you for this consult and for allowing us to participate in your patient's care. The patient wa s seen and the case discussed with Dr. Romero. Snehal PRESTON cc: 451 TT: 01/14/2017 20:07:08 Confirmation # [id number] Dictation # [id number] dn
[2017-01-14] MEDS: Budesonide 0.5 mg/2 ml Inhal Susp UD IH SCH (20:52)
[2017-01-15] MEDS: HYDROmorphone 2 mg/ml ISec IVP PRN ×4 (03:35→22:12)
--- NOTE | 2017-01-15 04:46 | CON ---
DATE: 01/14/2017 ADDENDUM Addendum to the GI progress report dictated by Snehal Weber NP. This patient was seen and evaluated here earlier. The patient came in with acute onset of pain in th e epigastric and right upper quadrant area. The patient is feeling slightly better. History of meta static breast cancer, history of chronic hep C. The CT was reviewed. The patient does have some kristian tral hernia, hepatomegaly, some mild dilation of the common bile duct, status post cholecystectomy. Ultrasound revealed a CBD around 15.1 mm, hepatosplenomegaly. The patient, on examination, had a red ucible hernia present with a large hepatomegaly. Requested for an MRI of the abdomen without contras t. MRCP to further evaluate. We will continue to closely follow up her care and suggest further man agement based on the clinical course. Brandon Romero MD cc: [id number] TT: 01/15/2017 04:45:08 Confirmation # [id number] Dictation # [id number] tn
[2017-01-15 06:32] LABS: ADD MANUAL DIFF? NO
[2017-01-15 06:45] LABS: BASO # 0.03 K/mm3 (0.0-2.0); BASO % 0.7 % (0.0-3.0); EOS # 0.1 (0.0-0.7); EOS % 1.7 % (1.5-5.0); GRAN # 2.54 (1.4-6.5); GRAN % 60.3 % (50.0-68.0); HEMATOCRIT 34.9 % (36.0-48.0); LYMPH # 1.3 (1.2-3.4); LYMPH % 30.4 % (22.0-35.0); MEAN CELL VOLUME 99.7 fL (80.0-105.0); MEAN CORPUSCULAR HEMOGLOBIN 32.9 pg (25.0-35.0); MONO # 0.3 (0.1-0.6); MONO % 6.9 % (1.0-6.0); PLATELET COUNT 173 10^3/uL (120.0-450.0); RED CELL DISTRIBUTION WIDTH 15.3 % (11.5-14.5); WHITE BLOOD COUNT 4.2 10^3/ul (4.5-11.0)
[2017-01-15] MEDS: Pantoprazole 40 mg EC Tab PO SCH (06:56)
[2017-01-15 06:58] LABS: ALB/GLOB RATIO 0.8 (1.1-1.8); ALKALINE PHOSPHATASE 122 U/L (38-133); ALT/SGPT 88 U/L (7-56); AST/SGOT 118 U/L (15-39); BLOOD UREA NITROGEN 12 mg/dL (7-21); CALCIUM 8.7 mg/dL (8.4-10.5); CARBON DIOXIDE 30 mmol/L (21-33); CHLORIDE 98 mmol/L (95-110); GFR AFRICAN-AMERICAN > 60; GLUCOSE,RANDOM 259 mg/dL (70-110); POTASSIUM 3.9 mmol/L (3.6-5.0); SODIUM 136 mmol/L (132-148)
[2017-01-15] MEDS: Levalbuterol 0.63 MG/3 ML Inhal Soln UD IH PRN ×3 (07:25→19:57)
[2017-01-15] MEDS: Budesonide 0.5 mg/2 ml Inhal Susp UD IH SCH ×2 (07:25→19:57)
[2017-01-15] MEDS: Insulin Lispro (humaLOG) LOW Coverage SC SCH ×4 (08:33→22:04)
[2017-01-15] MEDS: Potassium Chloride 20 mEq ER Tab PO SCH (10:42)
[2017-01-15] MEDS: PALBOCICLIB 125 MG PO SCH (10:47)
[2017-01-15] MEDS: oxyCODONE 20 mg ER Tab (oxyCONTIN) PO SCH ×3 (10:56→21:45)
[2017-01-15] MEDS: Metoprolol Succinate 50 mg XL Tab PO SCH (10:56)
--- NOTE | 2017-01-15 12:50 | PN ---
DATE: 01/15/2017 Seen and examined at the bedside earlier this morning. She was out of bed into the chair. She state s that her abdominal pain has improved, it is now intermittent and not constant. She did have a soft large bowel movement yesterday and did tolerate the liquid diet. No nausea or vomiting. VITAL SIGNS: Temperature is 97.7, blood pressure is 156/96, pulse rate 68, respirations 20. LABORATORY DATA: WBC is 4.2, H and H are 11.5 and 34.9, platelets of 173. Sodium is 136, potassium is 3.9, BUN 12, creatinine 0.4, total bilirubin is 1.0, AST 118, ALT 88, alkaline phosphatase is 122, alphafetoprotein is 3.0. Her serology, hepatitis A, hepatitis B surface antigen, hepatitis B core I gM antibody is negative. Hepatitis C antibody is reactive. Her hepatitis C viral RNA is pending res ults.. PHYSICAL EXAMINATION: HEENT: Sclerae are anicteric. NECK: Supple. CARDIAC: S1, S2. LUNGS: Sounds are clear. ABDOMEN: With bowel sounds, soft. Her abdomen seems less distended. It is soft. Mild tenderness, but less than yesterday. Palpable ventral hernia and still positive for hepatomegaly. EXTREMITIES: Positive for bilateral lower extremity edema seems a little bit more compared to yester day. NEUROLOGIC: Awake, alert, and oriented. ASSESSMENT: The patient is a 61-year-old female with history of stage IV breast cancer with mets to lymph nodes, came with abdominal pain, mainly right flank, which is now improved. Noted to have elev ated LFTs. The patient does have a history of cholecystectomy, status post abdominal ultrasound repor ting common bile duct of 15 mm, but no common bile duct stones. The patient is pending an MRCP for f urther evaluation. She does have a history of hepatosplenomegaly, history of hepatitis C, noninsulin dependent diabetes, history of lupus and hypertension. PLAN: The patient agrees to go for MRCP, although she states that she may need something to help her relax. She is going to be given Xanax 0.5 mg 30 minutes prior to MRI. MRI was called and they are a rodriguez that the patient is pending this test. She did have a clear liquid breakfast and is now n.p.o. Follow up hepatitis C viral and RNA. Continue PPI. Continue to monitor LFTs, which trended downward s, noted to be decreased today. She is also on prednisone. Hopefully, she will be able to go for e [facility] today. The patient was seen and case discussed with Dr. Romero. Snehal PRESTON cc: 451 TT: 01/15/2017 12:50:31 Confirmation # [id number] Dictation # [id number] amanda
--- NOTE | 2017-01-15 15:14 | MRI ---
PROCEDURE: Magnetic Resonance Cholangiopancreatography HISTORY: COMPARISON: None available. TECHNIQUE: Multiplanar, multisequence MR images of the abdomen were obtained, including heavily T2 weighted MRCP images of the biliary system. Rotating maximum intensity projection images of the biliary system were generated. FINDINGS: MRCP: The common bile duct is dilated measuring 12 mm in diameter. There are no stones visualized within the common duct. There is no intrahepatic ductal dilatation. The pancreatic duct is normal in caliber. LIVER: Unremarkable. GALLBLADDER: Unremarkable. SPLEEN: Unremarkable. PANCREAS: Unremarkable. ADRENALS: Unremarkable. KIDNEYS: Unremarkable. AORTA: No aneurysm. ASCITES: None. OTHER FINDINGS: None. IMPRESSION: Common bile duct measures 12 mm in diameter. There are no stones seen
[2017-01-15] MEDS: Digoxin 250 mcg (0.25 mg) Tab PO SCH (17:55)
[2017-01-15 17:58] VITALS: PULSE 62
[2017-01-16] MEDS: oxyCODONE 20 mg ER Tab (oxyCONTIN) PO SCH ×2 (02:24→10:14)
[2017-01-16] MEDS: HYDROmorphone 2 mg/ml ISec IVP PRN (05:15)
[2017-01-16] MEDS: Pantoprazole 40 mg EC Tab PO SCH (06:10)
--- NOTE | 2017-01-16 07:08 | PN ---
DATE: 01/15/2017 ADDENDUM This is an addendum to the GI progress reported by Snehal Weber NP. The patient was seen and evaluated earlier. The patient does have a reducible ventral hernia present . The previous CT done on the time of admission showed a loop of the transverse colon in the hernial sac. Presently, the patient is feeling better. Status post cholecystectomy. It showed a common bi le duct measuring only 12 mm. No stones identified. Liver was otherwise unremarkable. The likely o f severe pain in this patient, acute pain, could be due to the ventral hernia with the bowel loop in the hernial sac. We will slowly advance the diet. Followup of the LFTs. Thank you very much for al lowing us to participate in the care of the patient. Brandon Romero MD cc: [id number] TT: 01/16/2017 07:07:44 Confirmation # [id number] Dictation # [id number] oh
[2017-01-16 07:50] LABS: ADD MANUAL DIFF? NO
[2017-01-16 07:51] VITALS: TEMP 98.1; O2SAT 95
[2017-01-16 08:06] LABS: BASO # 0.04 K/mm3 (0.0-2.0); EOS # 0.1 (0.0-0.7); EOS % 2.3 % (1.5-5.0); GRAN # 2.75 (1.4-6.5); GRAN % 69.1 % (50.0-68.0); LYMPH # 0.8 (1.2-3.4); LYMPH % 20.6 % (22.0-35.0); MEAN CORPUSCULAR HEMOGLOBIN 32.8 pg (25.0-35.0); MEAN CORPUSCULAR HGB CONC 32.8 g/dl (31.0-37.0); MEAN PLATELET VOLUME 9.8 fl (7.0-11.0); MONO # 0.3 (0.1-0.6); PLATELET COUNT 169 10^3/uL (120.0-450.0); RED CELL DISTRIBUTION WIDTH 15.1 % (11.5-14.5)
[2017-01-16 08:07] LABS: ALB/GLOB RATIO 0.8 (1.1-1.8); ALKALINE PHOSPHATASE 123 U/L (38-133); ALT/SGPT 99 U/L (7-56); AST/SGOT 178 U/L (15-39); BILIRUBIN,TOTAL 1.3 mg/dL (0.2-1.3); BLOOD UREA NITROGEN 12 mg/dL (7-21); CALCIUM 8.7 mg/dL (8.4-10.5); CARBON DIOXIDE 32 mmol/L (21-33); CHLORIDE 95 mmol/L (98-107); GFR AFRICAN-AMERICAN > 60; GLUCOSE,RANDOM 275 mg/dL (70-110); POTASSIUM 3.7 mmol/L (3.6-5.0); SODIUM 136 mmol/L (132-148); TOTAL PROTEIN 8.2 g/dL (5.8-8.3)
[2017-01-16] MEDS: Insulin Lispro (humaLOG) LOW Coverage SC SCH ×2 (08:16→11:34)
[2017-01-16] MEDS: Sodium Chloride 0.45% 1,000 ML IV SCH (08:22)
[2017-01-16] MEDS: Budesonide 0.5 mg/2 ml Inhal Susp UD IH SCH (09:01)
[2017-01-16] MEDS: Potassium Chloride 20 mEq ER Tab PO SCH (10:14)
[2017-01-16] MEDS: Metoprolol Succinate 50 mg XL Tab PO SCH (10:14)
[2017-01-16 10:17] VITALS: BP 191/87; PULSE 67
--- NOTE | 2017-01-16 13:18 | DS ---
The patient is a 61-year-old, seen and examined, sitting in chair, comfortable, eating and tolerating . No nausea, vomiting, no diarrhea. She states her pain has gotten better. She is eating and jewell ating. PHYSICAL EXAMINATION: VITAL SIGNS: She is afebrile, pulse 67, respirations 18, blood pressure 150/67. LUNGS: Bilateral good airflow, no rhonchi or crackle. HEART: S1, S2 audible. No murmur. ABDOMEN: Soft, nontender, no rebound, no guarding. NEUROLOGIC: The patient is awake and alert, communicative. Moves all extremities, ambulatory. EXTREMITIES: Bilateral leg +1 edema. LABORATORY EXAM: WBC is 4.0, hemoglobin 11.8, hematocrit 36, platelets 169. Chemistry: Sodium 136, potassium 3.7, chloride 95, CO2 32, BUN 12, creatinine 0.5, blood sugar of 278, AST 178, ALT 99, alk phos is 123. ASSESSMENT: 1. Metastatic breast cancer. 2. History of lupus. 3. History of celiac artery bypass. 4. Breast cancer with metastases to the regional nodes 5. Hepatitis C. 6. Non-insulin dependent diabetes. 7. Hypertension, status post MRCP that is unremarkable, no blockage of common bile duct or liver met astasis. 8. Ventral hernia. 9. Status post cholecystectomy. PLAN: Discussed with Dr. Romero. The patient is hemodynamically stable. She is eating and tolera ting and wants to go home. We will discuss with Dr. Romero and patient will be discharged home sin ce she has appointment for chemotherapy on Wednesday. Adam Spaulding MD cc: [id number] TT: 01/16/2017 13:18:09 tn
--- NOTE | 2017-01-17 20:22 | PN ---
DATE: 01/15/2017 The patient is 69 years old, seen and examined. Still has abdominal discomfort. Complained of decre ased appetite; feels nauseous. VITAL SIGNS: She is afebrile, pulse 60, respirations 20, blood pressure 154/69. LUNGS: Bilateral fair airflow. No rhonchi or crackle. HEART: S1, S2 audible. ABDOMEN: Soft. Right flank discomfort, right mid-abdominal pain, and right upper quadrant pain. BILATERAL LEGS: +2 edema. LABORATORY EXAMINATION: WBC is 4.2, hemoglobin 11.5, hematocrit 34.9, platelet of 173. Chemistry: Sodium 136, potassium 3.9, chloride 98, CO2 of 30, BUN 12, creatinine 0.4. Blood sugar of 259. AST 18, ALT 38, alk phos is 122. MC is reactive. Had MRCP done. It showed common bile duct measuring mm diameter, but there is no stone. ASSESSMENT AND PLAN: 1. Abdominal pain, etiology still undetermined. 2. Metastatic breast cancer with eduardo involvement. 3. Hepatitis C. 4. Status post cholecystectomy. 5. Insulin-dependent diabetes. 6. History of lupus. 7. History of Raynaud phenomenon. 8. Hypertension. PLAN: Currently her pain seems to be improving. Will continue her on current medical treatment. Wi ll reevaluate the patient in a.m. Will advance diet in a.m. and see her response. If she tolerates it she can be discharged tomorrow, since she has an appointment for chemotherapy. Adam Spaulding MD cc: [id number] TT: 01/15/2017 21:57:35 Confirmation # [id number] Dictation # [id number] juan
[2017-01-20 07:27] LABS: HEPATITIS C VIRAL RNA QUAL Detected (())
== END 2017-01-16 13:57 | disposition home or self-care (01) | DRG 394 ==
LOC: ED 22:49 → ERH 01-14 03:09 → 5RNO 01-14 04:04 → OBSVTOIN 01-15 21:47
PROVIDERS: ADMIT Internal Medicine; ATTEND Internal Medicine
DX: K43.9 Ventral hernia without obstruction or gangrene (principal); C77.9 Secondary and unspecified malignant neoplasm of lymph node, unspecified; J84.10 Pulmonary fibrosis, unspecified; M32.9 Systemic lupus erythematosus, unspecified; N28.1 Cyst of kidney, acquired; G62.9 Polyneuropathy, unspecified; I10 Essential (primary) hypertension; I48.2 Chronic atrial fibrillation; B18.1 Chronic viral hepatitis B without delta-agent; R10.9 Unspecified abdominal pain; K31.84 Gastroparesis; C50.911 Malignant neoplasm of unspecified site of right female breast; D64.9 Anemia, unspecified; C50.912 Malignant neoplasm of unspecified site of left female breast; E11.9 Type 2 diabetes mellitus without complications; I34.0 Nonrheumatic mitral (valve) insufficiency; I73.00 Raynaud's syndrome without gangrene; J44.9 Chronic obstructive pulmonary disease, unspecified; K21.9 Gastro-esophageal reflux disease without esophagitis; M81.0 Age-related osteoporosis without current pathological fracture; Z79.899 Other long term (current) drug therapy; Z80.41 Family history of malignant neoplasm of ovary; Z82.49 Family history of ischemic heart disease and other diseases of the circulatory system; Z87.01 Personal history of pneumonia (recurrent); Z87.442 Personal history of urinary calculi; Z90.49 Acquired absence of other specified parts of digestive tract; Z90.710 Acquired absence of both cervix and uterus; Z88.1 Allergy status to other antibiotic agents; Z88.8 Allergy status to other drugs, medicaments and biological substances; I45.10 Unspecified right bundle-branch block; R79.89 Other specified abnormal findings of blood chemistry; K83.8 Other specified diseases of biliary tract; B18.2 Chronic viral hepatitis C; R16.2 Hepatomegaly with splenomegaly, not elsewhere classified